=== PATIENT | female | born 1985 | race Caucasian/White ===

== ENCOUNTER 2016-10-06 18:02 | Emergency (ER) | payer OTHER ==
[2016-10-06] MEDS ORDERED: LIDOCAINE VISCOUS 2% 15 ML UDC MM STA (20:06)
[2016-10-06] MEDS ORDERED: MAG HYDROX/AL HYDROX/SIMETH 30 ML UDC PO STA (20:06)
--- NOTE | 2016-10-06 20:08 | ED Physician Documentation ---
PD HPI ABD PAIN - Stated complaint Stated Complaint: ABD PX - Chief complaint Chief Complaint: Abd Pain - History obtained from History obtained from: Patient - History of Present Illness Timing - onset: Enter time (16:00), Today Timing - duration: Hours Timing - details: Abrupt onset, Constant, Waxing and waning Pain level now: 8 Quality: Pain Location: Epigastric Radiation: Other (does not radiate) Improved by: Other (no ameliorating factors) Worsened by: Other (no exacerbating factors) Associated symptoms: Nausea, Vomiting. No: Fever, Diarrhea, Constipation Similar symptoms before: Has not had sx before Recently seen: Not recently seen - Additional information Additional information: 2 weeks ago Review of Systems Constitutional: reports: Reviewed and negative Cardiac: reports: Reviewed and negative Respiratory: reports: Reviewed and negative GI: reports: Abdominal Pain, Nausea, Vomiting : denies: Dysuria, Frequency Musculoskeletal: denies: Back pain PD PAST MEDICAL HISTORY - Past Medical History Past Medical History: No - Past Surgical History Past Surgical History: No - Present Medications Home Medications: Ambulatory Orders Medication Instructions Recorded Confirmed HYDROcod/ACETAM 5/325 [[place] 5/325] 1 - 2 ea PO Q6H PRN #12 tablet 10/06/16 - Allergies Allergies/Adverse Reactions: Allergies Allergy/AdvReac Type Severity Reaction Status Date / Time No Known Drug Allergies Allergy Verified 10/06/16 18:19 - Social History Does the pt smoke?: No Smoking Status: Never smoker Does the pt drink ETOH?: No Does the pt have substance abuse?: No - Immunizations Immunizations are current?: Yes PD ED PE NORMAL - Vitals Vital signs reviewed: Yes - General General: Alert and oriented X 3, Well developed/nourished, Other (appears to be in mild painful discomfort) - Cardiac Cardiac: RRR, No murmur - Respiratory Respiratory: No respiratory distress, Clear bilaterally - Abdomen Abdomen: Soft, Non distended PD ED PE EXPANDED - Abdomen Abdomen: Tender to palpation, Epigastric. No: Rebound, Guarding Results - Vitals Vitals: Vital Signs - 24 hr 10/06/16 10/06/16 10/06/16 18:17 19:55 21:20 Temperature 35.7 C L 36.5 C Heart Rate 62 60 84 Respiratory 14 16 15 Rate Blood Pressure 109/72 110/66 115/79 O2 Saturation 100 100 97 10/06/16 10/06/16 22:28 23:32 Temperature 36.9 C 36.8 C Heart Rate 63 61 Respiratory 15 15 Rate Blood Pressure 128/80 124/80 O2 Saturation 100 100 Oxygen O2 Source Room air - Labs Labs: Laboratory Tests 10/06/16 10/06/16 20:38 20:38 WBC 13.3 H RBC 4.80 Hgb 15.0 Hct 45.1 MCV 94.0 MCH 31.1 H MCHC 33.1 RDW 13.9 Plt Count 335 MPV 7.0 L Neut # 11.8 H Lymph # 1.0 L Will # 0.4 Eos # 0.0 Baso # 0.0 Absolute Nucleated RBC 0.00 Nucleated RBCs 0.0 Sodium 139 Potassium 3.8 Chloride 104 Carbon Dioxide 26 Anion Gap 9.0 BUN 15 Creatinine 0.8 Estimated GFR (MDRD) 85 L Glucose 120 H Calcium 9.0 Total Bilirubin 1.2 H AST 109 H ALT 56 Alkaline Phosphatase 183 H Total Protein 7.6 Albumin 3.9 Globulin 3.7 Albumin/Globulin Ratio 1.1 Lipase 26 - Rads (name of study) RUQ US Radiology: Prelim report reviewed, See rad report PD MEDICAL DECISION MAKING - ED course Complexity details: reviewed results, re-evaluated patient, considered differential, d/w patient Departure - Departure Disposition: 01 Home, Self Care Clinical Impression: Biliary colic Condition: Good Instructions: ED Gallstone W Biliary Colic Follow-Up: [facility] [Provider Group] Prescriptions: HYDROcod/ACETAM 5/325 [[place] 5/325] 1 - 2 ea PO Q6H PRN #12 tablet PRN Reason: Pain Discharge Date/Time: 10/06/16 23:59
[2016-10-06] MEDS ORDERED: LIDOCAINE VISCOUS 2% 15 ML UDC MM ONE (20:12)
[2016-10-06] MEDS ORDERED: MAG HYDROX/AL HYDROX/SIMETH 30 ML UDC ONE (20:12)
[2016-10-06] MEDS ORDERED: ONDANSETRON 4 MG/2 ML VIAL IVP STA (20:20)
[2016-10-06] MEDS ORDERED: SODIUM CHLORIDE 0.9% 1,000 ML IV STA (20:20)
[2016-10-06] MEDS ORDERED: ONDANSETRON 4 MG/2 ML VIAL ONE (20:30)
[2016-10-06 20:48] LABS: BASOPHILS % (AUTO) 0.3 %; EOSINOPHILS % (AUTO) 0.3 %; HCT - HEMATOCRIT 45.1 % (37.0-47.0); LYMPHOCYTES % (AUTO) 7.3 %; MEAN CORPUSCULAR HEMOGLOBIN 31.1 pg (27.0-31.0); MEAN CORPUSCULAR HGB CONC 33.1 g/dL (32.0-36.0); MONOCYTES # (AUTO) 0.4 10^3/uL (0.0-1.0); NEUTROPHILS # (AUTO) 11.8 10^3/uL (1.5-6.6); NEUTROPHILS % (AUTO) 89.1 %; RED CELL DISTRIBUTION WIDTH 13.9 % (12.0-15.0); UNCORRECTED WHITE BLOOD COUNT 13.3 x10^3/uL; WHITE BLOOD COUNT 13.3 x10^3/uL (4.8-10.8)
[2016-10-06 21:02] LABS: ALBUMIN/GLOBULIN RATIO 1.1 (1.0-2.2); BILIRUBIN,TOTAL 1.2 mg/dL (0.2-1.0); CREATININE 0.8 mg/dL (0.4-1.0); POTASSIUM 3.8 mmol/L (3.5-5.0); TOTAL PROTEIN 7.6 g/dL (6.7-8.2)
--- NOTE | 2016-10-06 21:55 | Ultrasound Preliminary Report ---
Exam: US Abdomen Limited IMPRESSION: 1. Positive sonographic Vee sign with gallstones. No definite colon wall thickening or pericholecy stic fluid. However, acute cholecystitis remains in the differential. 2. Dilated common bile lobe with questionable intrahepatic bile duct dilation. Small possible filling defect in the common bile duct could represent a tiny stone. MRCP would be confirmatory. 3. Possible 1.5 cm left liver hemangioma. [facility] SITE ID: [id number]
--- NOTE | 2016-10-06 22:02 | Ultrasound Report ---
EXAM: ABDOMEN ULTRASOUND LIMITED, RUQ EXAM DATE: 10/06/2016 09:25 PM. CLINICAL HISTORY: Epigastric pain. COMPARISON: None. TECHNIQUE: Real-time scanning was performed with static images obtained. FINDINGS: Liver: Possible mild intrahepatic dilation of the left liver. Small echogenic region near the central left liver measuring 1.5 x 1.1 x 1.2 cm. 15.6 cm. Main portal vein flow: Hepatopetal. Gallbladder: Gallstones. Positive sonographic Vee's sign. Gallbladder sludge. No pericholecystic f luid or definite gallbladder wall thickening. Biliary System: CBD measures 8 mm. Common bile duct not seen well due to bowel gas. Caliber is dilate d for the patient's age. Possible small filling defect in the common bile duct could represent choled ocholithiasis. Right kidney: 11.2 cm in length. No hydronephrosis. Other: None. IMPRESSION: 1. Positive sonographic Vee's sign with gallstones. No definite gallbladder wall thickening or per icholecystic fluid. However, acute cholecystitis remains in the differential. 2. Dilated common bile duct with questionable intrahepatic bile duct dilation. Small possible filling defect in the common bile duct could represent a tiny stone. MRCP would be confirmatory. Recommend c holangiogram if patient is undergoing a cholecystectomy. 3. Possible 1.5 cm left liver hemangioma. [facility] Referring Provider Line: [phone] SITE ID: [id number]
[2016-10-06] MEDS ORDERED: KETOROLAC 30 MG/ML VIAL IVP STA (22:40)
[2016-10-06] MEDS ORDERED: KETOROLAC 30 MG/ML VIAL ONE (22:50)
[2016-10-06 23:33] VITALS: BP 124/80
[2016-10-06] MEDS ORDERED: HYDROcod/ACET 5/325 Prepack 6 PO STA (23:40)
[2016-10-06] MEDS ORDERED: HYDROcod/ACET 5/325 Prepack 6 PO ONE (23:51)
== END 2016-10-06 23:59 | disposition home or self-care (01) ==
LOC: ED 18:02
DX: K80.70 Calculus of gallbladder and bile duct without cholecystitis without obstruction (principal)
CPT/HCPCS: 36415; 76705; 80053; 83690; 85025; 96374; 96375; 99284; A9270